=== PATIENT | male | born 1970 | race Caucasian/White ===

== ENCOUNTER → 2017-02-02 | Outpatient (CLI) | payer BC ==
--- NOTE | 2017-02-02 14:46 | CR ---
EXAMINATION: Lumbar spine HISTORY: Low back pain COMPARISON: 10/13/2016 TECHNIQUE: 2 views FINDINGS: The lumbar spinal alignment appears normal. The vertebral body heights appear well maintai skyler. Bilateral posterior fusion hardware with overlying laminectomy changes noted at L3-L4. There is likely early osseous interbody fusion. Bone mineralization otherwise appears normal. No acute osseo us abnormalities. IMPRESSION: Stable hardware fusion at L3-L4.
== END ==
LOC: MW.DI 11:45
PROVIDERS: ATTEND Neurological Surgery
DX: M54.5 Low back pain (principal); Z96.7 Presence of other bone and tendon implants
CPT/HCPCS: 72100; 72100-26

== ENCOUNTER 2019-12-29 06:50 | Day surgery (SDC) | payer BC ==
--- NOTE | 2019-12-29 07:32 | PCM.PREANE ---
Preanesthetic Assessment - Anesthesia/Transfusion/Family Hx Anesthesia History: Prior Anesthesia Without Reaction Family History of Anesthesia Reaction: No Transfusion History: No Prior Transfusion(s) - Review of Systems General: No Symptoms Pulmonary: No Symptoms Cardiovascular: No Symptoms Gastrointestinal: No Symptoms Neurological: No Symptoms Other: Reports: None - Physical Assessment NPO Status Date: 12/28/19 Vital Signs: Last Vital Signs Temp 97.5 F 12/29/19 07:24 Pulse 49 L 12/29/19 07:24 Resp 16 12/29/19 07:24 BP 120/67 12/29/19 07:24 Pulse Ox 93 L 12/29/19 07:24 Height: 5 ft 9 in Weight: 106.141 kg ASA Class: 2 Mental Status: Alert & Oriented x3 Airway Class: Mallampati = 2 Dentition: Reports: Normal Dentition ROM/Head Extension: Full Lungs: Clear to Auscultation, Normal Respiratory Effort Cardiovascular: Regular Rate, Regular Rhythm - Allergies Allergies/Adverse Reactions: Allergies Allergy/AdvReac Type Severity Reaction Status Date / Time Penicillins Allergy Hives Verified 12/25/19 12:00 tetanus toxoid, adsorbed Allergy Anaphylactic Verified 12/25/19 12:00 Shock - Blood Blood Available: No - Anesthesia Plan Pre-Op Medication Ordered: None - Acknowledgements Anesthesia Type Planned: General Anesthesia Pt an Appropriate Candidate for the Planned Anesthesia: Yes Alternatives and Risks of Anesthesia Discussed w Pt/Guardian: Yes Pt/Guardian Understands and Agrees with Anesthesia Plan: Yes PreAnesthesia Questionnaire HEENT History: Reports: Other (See Below) Other HEENT History: Wears glasses Cardiovascular History: Reports: High Cholesterol Respiratory History: Reports: Other (See Below) Other Respiratory History: scheduled to have sleep study in january Gastrointestinal History: Reports: None Genitourinary History: Reports: None Musculoskeletal History: Reports: None Neurological History: Reports: None Psychiatric History: Reports: None Endocrine/Metabolic History: Reports: Obesity/BMI 30+ Hematologic History: Reports: None Immunologic History: Reports: None Oncologic (Cancer) History: Reports: None Dermatologic History: Reports: None - Infectious Disease History Infectious Disease History: Reports: Chicken Pox, Mumps - Past Surgical History Head Surgeries/Procedures: Reports: None HEENT Surgical History: Reports: None Cardiovascular Surgical History: Reports: None Respiratory Surgical History: Reports: None GI Surgical History: Reports: None Male Surgical History: Reports: None Endocrine Surgical History: Reports: None Neurological Surgical History: Reports: Spinal Fusion Musculoskeletal Surgical History: Reports: Arthroscopic Knee, Other (See Below) Other Musculoskeletal Surgeries/Procedures:: Knee surgery. Lumbar fusion (09/07) Oncologic Surgical History: Reports: None Dermatological Surgical History: Reports: None - SUBSTANCE USE Tobacco Use Within Last Twelve Months: Other (See Below) Recreational Drug Use History: No - HOME MEDS Home Medications: Home Meds . [No Known Home Meds] 12/25/19 [History] - CURRENT (IN HOUSE) MEDS Current Meds: Current Medications Lactated Ringer's (Ringers, Lactated) 1,000 mls @ 125 mls/hr IV ASDIRECTED MADHAVI
[2019-12-29] MEDS ORDERED: Propofol 200 MG/20 ML SDV ONE (07:43)
--- NOTE | 2019-12-29 08:21 | PCM.OPNOTE ---
- General Post-Op/Procedure Note Date of Surgery/Procedure: 12/29/19 Operative Procedure(s): Colonoscopy with cold sigmoid and rectal polypectomies Pre Op Diagnosis: Desire for colorectal cancer screening. Family history of colon cancer and colon polyps. Post-Op Diagnosis: Small sigmoid and rectal polyps. Mild sigmoid diverticulosis. Anesthesia Technique: MAC (ASA II) Primary Surgeon: Gordy Stout Condition: Good Free Text/Narrative:: DICTATION [id number] CPT CODE [id number]
[2019-12-29] MEDS ORDERED: Lactated Ringers 1,000 ML IV SCH (08:30)
--- NOTE | 2019-12-29 08:35 | PCM.POSTAN ---
POST ANESTHESIA ASSESSMENT - MENTAL STATUS Mental Status: Alert, Oriented - VITAL SIGNS Vital Signs: Last Vital Signs Temp 97.5 F 12/29/19 07:24 Pulse 53 L 12/29/19 08:30 Resp 11 L 12/29/19 08:30 BP 109/59 L 12/29/19 08:30 Pulse Ox 96 12/29/19 08:30 - RESPIRATORY Respiratory Status: Respiratory Rate WNL, Airway Patent, O2 Saturation Stable - CARDIOVASCULAR CV Status: Pulse Rate WNL, Blood Pressure Stable - GASTROINTESTINAL GI Status: No Symptoms - POST OP HYDRATION Hydration Status: Adequate & Stable
--- NOTE | 2019-12-29 08:35 | PCM48HPAN ---
Post Anesthesia Note - EVALUATION WITHIN 48HRS OF ANESTHETIC Vital Signs in Normal Range: Yes Patient Participated in Evaluation: Yes Respiratory Function Stable: Yes Airway Patent: Yes Cardiovascular Function Stable: Yes Hydration Status Stable: Yes Pain Control Satisfactory: Yes Nausea and Vomiting Control Satisfactory: Yes Mental Status Recovered: Yes Vital Signs: Last Vital Signs Temp 97.5 F 12/29/19 07:24 Pulse 53 L 12/29/19 08:30 Resp 11 L 12/29/19 08:30 BP 109/59 L 12/29/19 08:30 Pulse Ox 96 12/29/19 08:30
[2019-12-29 11:49] VITALS: BP 113/71; PULSE 56
--- NOTE | 2019-12-29 12:10 | OR ---
SURGEON: Gordy Stout M.D. DATE OF PROCEDURE: 12/29/2019 OPERATION PERFORMED: Colonoscopy with cold sigmoid and rectal polypectomy. PRIMARY SURGEON: Gordy Stout MD. ANESTHESIA: MAC. ASA CLASSIFICATION: II. PREOPERATIVE DIAGNOSES: 1. Desire for colorectal cancer screening. 2. Family history of colon polyps and colon cancer. POSTOPERATIVE DIAGNOSES: 1. Sigmoid polyp. 2. Rectal polyps. 3. Mild sigmoid diverticulosis. DESCRIPTION OF PROCEDURE: The patient was taken to the endoscopy room, positioned on the endoscopy table in the left lateral decubitus position. Time-out was called for appropriate identification of the patient and procedure. Monitored anesthesia care was provided. The colonoscope was inserted into the rectum and advanced with minimal difficulty to the cecum. The cecum was identified by internal landmarks and external pressure. The colonoscope was retroflexed to visualize the ascending colon from below, then straightened and slowly withdrawn. The cecum, ascending colon, hepatic flexure, transverse colon, splenic flexure, and descending colon showed no tumors, polyps, diverticula, or angiodysplastic changes. There was no evidence of inflammatory bowel disease. The patient does have a few small scattered sigmoid diverticula. No stricture, spasm, or bleeding was noted. One small polyp was encountered in the distal sigmoid colon and removed with the cold biopsy forceps. Two small polyps perhaps utmost 2 mm in size were encountered in the proximal rectum and also removed with the cold biopsy forceps. The colonoscope was withdrawn to the distal rectum and retroflexed to visualize the anal orifice from above. No tumors or polyps were seen, and there were no acute hemorrhoidal changes. The colonoscope was then straightened, the rectum aspirated, and the colonoscope removed. The patient tolerated the procedure well and was taken to recovery room in stable condition. JONATHON / JULIANNA /[id number]
[2019-12-30] MEDS ORDERED: Lactated Ringers 1,000 ML IV SCH (06:00)
== END 2019-12-29 08:52 | disposition home or self-care (01) ==
LOC: MW.SDS 06:50
PROVIDERS: ATTEND Surgery
DX: Z12.11 Encounter for screening for malignant neoplasm of colon (principal); K63.5 Polyp of colon; K62.1 Rectal polyp; K57.30 Diverticulosis of large intestine without perforation or abscess without bleeding; K42.9 Umbilical hernia without obstruction or gangrene; E78.5 Hyperlipidemia, unspecified; E78.00 Pure hypercholesterolemia, unspecified; G47.10 Hypersomnia, unspecified; G47.33 Obstructive sleep apnea (adult) (pediatric); Z88.0 Allergy status to penicillin; Z88.7 Allergy status to serum and vaccine; Z80.0 Family history of malignant neoplasm of digestive organs; Z83.71 Family history of colonic polyps
CPT/HCPCS: 45380; J2704